=== PATIENT | male | born 1980 | race Caucasian/White ===

== ENCOUNTER 2016-12-26 07:37 | Day surgery (SDC) | payer OTHER ==
[2016-12-26 09:12] VITALS: BMI 25.9
[2016-12-26] MEDS ORDERED: Propofol 10 mg/ml Inj (20 ML) ONE (10:19)
[2016-12-26] MEDS ORDERED: Lactated Ringer's 500 ML IV ONE (10:22)
[2016-12-26 12:14] VITALS: TEMP 98.6
[2016-12-26 12:26] VITALS: O2SAT 98
[2016-12-26 12:34] VITALS: BP 127/71; PULSE 63; RESP 16
== END 2016-12-26 11:40 | disposition home or self-care (01) ==
LOC: C.ENDO 07:37
PROVIDERS: ATTEND Internal Medicine Gastroenterology
DX: D12.3 Benign neoplasm of transverse colon (principal); R10.32 Left lower quadrant pain; D12.5 Benign neoplasm of sigmoid colon
CPT/HCPCS: 45388; 88305; J2704; J7120

== ENCOUNTER 2017-01-17 07:02 | Day surgery (SDC) | payer OTHER ==
[2017-01-17 07:21] VITALS: BMI 27.6
[2017-01-17] MEDS ORDERED: Lactated Ringer's 1,000 ML IV ONE (09:05)
[2017-01-17] MEDS ORDERED: Propofol 10 mg/ml Inj (20 ML) ONE (09:07)
[2017-01-17] MEDS ORDERED: Midazolam 2 MG/2 ML VIAL ONE (09:08)
[2017-01-17] MEDS ORDERED: Lactated Ringer's 500 ML IV ONE (09:26)
[2017-01-17 10:30] VITALS: TEMP 98.1
[2017-01-17 10:35] VITALS: O2SAT 100
[2017-01-17 11:46] VITALS: BP 113/59; PULSE 52; RESP 13
== END 2017-01-17 11:25 | disposition home or self-care (01) ==
LOC: C.ENDO 07:02
PROVIDERS: ATTEND Internal Medicine Gastroenterology
DX: K29.70 Gastritis, unspecified, without bleeding (principal); D72.820 Lymphocytosis (symptomatic); K22.5 Diverticulum of esophagus, acquired
CPT/HCPCS: 43239; 88305; J2001; J2250; J2704; J7120

== ENCOUNTER 2017-10-03 02:16 | Emergency (ER) | payer OTHER ==
[2017-10-03 02:17] VITALS: BMI 27.6
[2017-10-03 02:38] VITALS: BP 145/89; PULSE 84; TEMP 97.8
[2017-10-03 02:48] VITALS: RESP 16; O2SAT 98
--- NOTE | 2017-10-03 03:03 | C.PDOC ---
History Of Present Illness 37 year old male presents to the ED for evaluation of sore throat and sensation of a questionable foreign body and/or increased saliva in throat when he lays down. Patient is also complaining of nasal congestion and allergy symptoms which have been ongoing for the past week. He has been taking Claritin with minimal relief. Patient denies fever, chills, headache, neck pain, shortness of breath, possibility of food association or possibility of symptoms being indicative of foreign body consumed via food. Time Seen by Provider: 10/03/17 02:34 Chief Complaint (Nursing): ENT Problem History Per: Patient History/Exam Limitations: None Onset/Duration Of Symptoms: Hrs Current Symptoms Are (Timing): Still Present Quality (Mouth/Throat): Other (sore throat, foreign body sensation) Past Medical History Reviewed: Historical Data, Nursing Documentation, Vital Signs Vital Signs: Last Vital Signs Temp 97.8 F 10/03/17 02:28 Pulse 84 10/03/17 02:28 Resp 16 10/03/17 02:28 BP 145/89 10/03/17 02:28 Pulse Ox 98 10/03/17 03:04 - Medical History PMH: No Chronic Diseases Denies: Chronic Kidney Disease Surgical History: Endoscopy Family History: States: Unknown Family Hx - Social History Hx Alcohol Use: No Hx Substance Use: No - Immunization History Hx Tetanus Toxoid Vaccination: No Hx Influenza Vaccination: No Hx Pneumococcal Vaccination: No Review Of Systems Constitutional: Negative for: Fever, Chills ENT: Positive for: Nose Congestion, Other (foreign body sensation, increased saliva in throat ) Respiratory: Negative for: Shortness of Breath Musculoskeletal: Negative for: Neck Pain Neurological: Negative for: Headache Physical Exam - Physical Exam Appears: Non-toxic, No Acute Distress Skin: Normal Color, Warm, Dry Head: Atraumatic, Normacephalic Eye(s): bilateral: Normal Inspection Nose: Discharge (thick ), Other (enlarged nasal turbinates) Throat: Normal, No Erythema, No Exudate, No Other (tonsillar enlargement) Chest: Symmetrical, No Deformity, No Tenderness Cardiovascular: Rhythm Regular, No Murmur Respiratory: Normal Breath Sounds, No Rales, No Rhonchi, No Wheezing Extremity: Normal ROM, Capillary Refill (less than 2 seconds ) Neurological/Psych: Oriented x3, Normal Speech, Normal Cognition ED Course And Treatment O2 Sat by Pulse Oximetry: 98 (on RA) Pulse Ox Interpretation: Normal Progress Note: On reassessment, patient is resting comfortably, showing no signs of respiratory distress and is stable for discharge. Patient is advised to f/u with his PMD within 1-2 days for further evaluation and/or return to the ED if symptoms persist or worsen. 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 - Scribe Statement The provider has reviewed the documentation as recorded by the Scribe (Joaquina Rae) All medical record entries made by the Scribe were at my direction and personally dictated by me. I have reviewed the chart and agree that the record accurately reflects my personal performance of the history, physical exam, medical decision making, and the department course for this patient. I have also personally directed, reviewed, and agree with the discharge instructions and disposition.
== END 2017-10-03 03:10 | disposition home or self-care (01) ==
LOC: C.ER 02:16
DX: J30.9 Allergic rhinitis, unspecified (principal); F17.210 Nicotine dependence, cigarettes, uncomplicated

== ENCOUNTER 2018-07-16 09:21 | Day surgery (SDC) | payer BC, OTHER ==
--- NOTE | 2018-07-16 11:30 | CP.SDSHP ---
Same Day Surgery H & P - History Proposed Procedure: EGD Pre-Op Diagnosis: Rosa's esophagus - Allergies Allergies: Allergies shellfish derived Allergy (Verified 07/16/18 10:28) RASH - Physical Exam General Appearance: NAD Vital Signs: Vital Signs 07/16/18 10:28 Temperature 98.4 F Pulse Rate 66 Respiratory 19 Rate Blood Pressure 120/68 O2 Sat by Pulse 100 Oximetry Mental Status: Alert & Oriented x3 Neuro: WNL Heart: WNL Lungs: WNL GI: WNL - {Optional Preform as Required} Abdomen: WNL - Impression Pt. Evaluated Today:Candidate for Anesthesia & Procedure: Yes - Date & Time Date: 07/16/18 Time: 11:30 Short Stay Discharge - Short Stay Discharge Admitting Diagnosis/Reason for Visit: PERSONAL HISTORY OF OTHER DISEASES OF THE DIGESTIV Disposition: HOME/ ROUTINE
[2018-07-16] MEDS ORDERED: Lactated Ringer's 500 ML IV ONE (11:36)
[2018-07-16 12:11] VITALS: TEMP 98.9
[2018-07-16 12:38] VITALS: O2SAT 100
[2018-07-16 13:49] VITALS: BP 108/59; PULSE 60; RESP 18
--- NOTE | 2018-07-17 11:25 | CARD ---
APPROVED REPORT Date of service: 07/16/2018 EKG Measurement Heart [id number] <Conclusion> Suspect arm lead reversal, interpretation assumes no reversal Sinus bradycardia Anterolateral infarct, age undetermined Abnormal ECG
== END 2018-07-16 13:47 | disposition home or self-care (01) ==
LOC: C.ENDO 09:21
PROVIDERS: ATTEND Internal Medicine Gastroenterology
DX: K22.70 Barrett's esophagus without dysplasia (principal); K44.9 Diaphragmatic hernia without obstruction or gangrene; K29.00 Acute gastritis without bleeding; K29.50 Unspecified chronic gastritis without bleeding; K21.0 Gastro-esophageal reflux disease with esophagitis; Z87.891 Personal history of nicotine dependence; Z98.890 Other specified postprocedural states; Z79.899 Other long term (current) drug therapy; Z91.013 Allergy to seafood
CPT/HCPCS: 43239; 88305; C9113; J7120

== ENCOUNTER 2018-07-16 09:30 | Outpatient (CLI) | payer OTHER | END 2018-07-16 09:31 | disposition home or self-care (01) | LOC: C.LAB 09:30 | DX: Z00.01 Encounter for general adult medical examination with abnormal findings (principal) ==